=== PATIENT | male | born 1940 | race African-American/Black ===

== ENCOUNTER 2017-02-13 20:48 | Inpatient (IN) | payer BC, MEDICARE ==
[~2017-02-13] VITALS: Ht 172.7 cm; Wt 72.6 kg
[~2017-02-13 20:48] MED LIST: ADVAIR 250-501 EACH INH; AMLODIPINE BESY10 MG ORAL; ETHYL CHLORI103.5 ML TOPIC; FOLIC ACID1 MG ORAL; LIPITOR20 MG ORAL; NEXIUM40 MG ORAL; PROAIR HFA8.5 GM INH; RENA-VITE RX T1 EAC1 PO; VITAMIN B-1001 EACH PO
[2017-02-13 21:00] VITALS: BP 138/62
[2017-02-13] MEDS ORDERED: Piperacillin/Tazobactam 3.375 GM in NS 110 ML IVPB ONE (21:15)
[2017-02-13] MEDS ORDERED: Vancomycin 1.5gm/D5W 250ml 250 ML IVPB ONE (21:15)
--- NOTE | 2017-02-13 21:16 | Emergency Room Report ---
History of Present Illness General Chief Complaint: Generalized Weakness Source: Patient Present Illness HPI Is a 76-year-old male with history of hypertension, renal failure on hemodialysis. Hemodialysis days are Saturday, Saturday, and Saturday. He had a recent graft placed on his right upper extremity because of left was clotted. This was done yesterday. He presents with generalize weakness. Is no strength. No vocality. Denies any fever chills denies any nausea vomiting. This occurred this evening. Denies any chest pain. Denies any nausea vomiting. Allergies: Coded Allergies: No Known Allergies (Unverified , 07/05/14) Patient History Past Medical History: see triage record, old chart reviewed, HTN, renal disease , dialysis Past Surgical History: other Pertinent Family History: none Social History: Denies: smoking Immunizations: other Reviewed Nursing Documentation: PMH: Agreed, PSxH: Agreed Nursing Documentation-PMH Hx Cardiac Problems: Yes Hx Hypertension: Yes Hx Pacemaker: Yes Hx Asthma: Yes Hx Cancer: No Hx Dialysis: Yes - ESRD,M-W-F Hx Neurological Problems: No Review of Systems Constitutional: Reports: malaise, weakness Eye: Denies: eye pain, blurred vision ENT: Denies: ear pain, nose congestion, throat swelling Respiratory: Denies: cough, shortness of breath Cardiovascular: Denies: chest pain, palpitations Gastrointestinal: Denies: abdominal pain, diarrhea, nausea, vomiting Musculoskeletal: Denies: back pain, joint pain Skin: Denies: rash Neurological: Denies: headache, numbness Endocrine: Denies: increased thirst, increased urine Hematologic/Lymphatic: Denies: easy bruising All Other Systems: negative except mentioned in HPI Physical Exam Vital Signs Date Time Temp Pulse Resp B/P (MAP) Pulse Ox O2 Delivery O2 Flow Rate FiO2 02/13/17 20:50 101.8 86 18 149/81 97 Room Air vitals with a fever Sp02 EP Interpretation: reviewed, normal General Appearance: well appearing, no apparent distress, alert Head: normocephalic, atraumatic Eyes: bilateral eye PERRL, bilateral eye EOMI ENT: hearing grossly normal, normal pharynx Neck: full range of motion, supple, no meningismus Respiratory: chest non-tender, lungs clear, normal breath sounds Cardiovascular #1: regular rate, rhythm, no murmur Gastrointestinal: normal bowel sounds, non tender, no mass, no organomegaly, no bruit, non-distended Musculoskeletal: back normal, gait/station normal, normal range of motion, other - Right upper arm: Tender to the patient. Warm to the touch. No bruit. Neurologic: alert, oriented x3 Psychiatric: mood/affect normal Skin: warm/dry Procedures Critical Care Time Critical Care Time Critical care is mandated in this patient who presented with sepsis secondary to infection. Patient require my urgent intervention to attenuate the risks of metabolic collapse which may lead to cardiovascular collapse and . Critical care time is 35 minutes excluding any reportable procedure. Critical care time included evaluation, multiple reevaluation, looking at old charts, interpreting laboratory and diagnostic data, discussing case with patient and family and consultants, and charting. Medical Decision Making Diagnostic Impression: Primary Impression: Sepsis Qualified Codes: A41.9 - Sepsis, unspecified organism Additional Impressions: Infection of AV graft for dialysis Anemia Qualified Codes: D64.9 - Anemia, unspecified ER Course Patient presents with sepsis. He is covered with Zosyn and vancomycin. I suspect that his new AV graft is infected. Ultrasound showed that it is patent. No fluid collection. He also has a Shubham catheter on his left chest. This may also be a source for line infection. No evidence of pneumonia , acute abdomen, meningitis name a few. I discussed the case with Dr. Nunez, who admit him before. He wrote orders. patient did not get for full 30 mL per kilo IV fluid bolus for sepsis. The reason for this is because patient is a dialysis patient and does not make urine. I do not want to put him into pulmonary edema. Laboratory Tests Test 02/13/17 21:15 02/13/17 22:00 White Blood Count 10.6 K/UL (4.8-10.8) Red Blood Count 2.60 M/UL (4.70-6.10) L Hemoglobin 9.2 G/DL (14.2-18.0) L Hematocrit 28.3 % (42.0-52.0) L Mean Corpuscular Volume 109 FL (80-99) H Mean Corpuscular Hemoglobin 35.5 PG (27.0-31.0) H Mean Corpuscular Hemoglobin Concent 32.6 G/DL (32.0-36.0) Red Cell Distribution Width 13.2 % (11.6-14.8) Platelet Count 182 K/UL (150-450) Mean Platelet Volume 7.5 FL (6.5-10.1) Neutrophils (%) (Auto) 74.5 % (45.0-75.0) Lymphocytes (%) (Auto) 8.6 % (20.0-45.0) L Monocytes (%) (Auto) 13.0 % (1.0-10.0) H Eosinophils (%) (Auto) 3.2 % (0.0-3.0) H Basophils (%) (Auto) 0.6 % (0.0-2.0) Prothrombin Time 11.1 SEC (9.30-11.50) Prothromb Time International Ratio 1.1 (0.9-1.1) Activated Partial Thromboplast Time 30 SEC (23-33) Sodium Level 139 mEQ/L (135-145) Potassium Level 3.5 mEQ/L (3.4-4.9) Chloride Level 96 mEQ/L (98-107) L Carbon Dioxide Level 22 mEQ/L (20-30) Anion Gap 21 (5-15) H Blood Urea Nitrogen 27 mg/dL (7-23) H Creatinine 8.2 mg/dL (0.7-1.2) H Estimat Glomerular Filtration Rate mL/min (>60) Glucose Level 100 mg/dL (74-106) Calcium Level 8.7 mg/dL (8.6-10.2) Total Bilirubin 0.3 mg/dL (0.0-1.2) Aspartate Amino Transf (AST/SGOT) 15 U/L (5-40) Alanine Aminotransferase (ALT/SGPT) 5 U/L (3-41) Alkaline Phosphatase 66 U/L (40-129) Creatine Kinase MB Pending Troponin I < 0.30 ng/mL (<=0.30) Total Protein 7.3 g/dL (6.6-8.7) Albumin 3.8 g/dL (3.5-5.2) Globulin 3.5 g/dL Albumin/Globulin Ratio 1.0 (1.0-2.7) Lactic Acid Level 2.90 mmol/L (0.66-2.22) H Lab Results Impression labs with elevated lactic acid EKG Diagnostic Results Rate: normal Rhythm: NSR ST Segments: no acute changes Rhythm Strip Diag. Results Rhythm Strip Time: 21:38 EP Interpretation: yes Rate: 82 Rhythm: NSR, no PVC's, no ectopy Chest X-Ray Diagnostic Results Chest X-Ray Diagnostic Results : Chest X-Ray Ordered: Yes # of Views/Limited/Complete: 1 View Indication: Other EP Interpretation: Yes Interpretation: no consolidation, no effusion, no pneumothorax, no acute cardiopulmonary disease Impression: No acute disease Electronically Signed by: Electronically signed by Devyn Panda MD CT/MRI/US Diagnostic Results CT/MRI/US Diagnostic Results : Imaging Test Ordered: Ultrasound right upper extremity Impression negative per laundry supervisor. Last Vital Signs Date Time Temp Pulse Resp B/P (MAP) Pulse Ox O2 Delivery O2 Flow Rate FiO2 02/13/17 20:50 101.8 86 18 149/81 97 Room Air Status: improved Disposition: ADMITTED INPATIENT Condition: Serious DEVYN PANDA M.D. Feb 13, 2017 21:16
[2017-02-13] MEDS ORDERED: Acetaminophen 500mg (ES) tab ORAL ONE (21:30)
[2017-02-13] MEDS ORDERED: Zosyn 3.375gm inj ONE (22:05)
[2017-02-13 22:08] LABS: BASOPHILS % (AUTO) 0.6 % (0.0-2.0); EOSINOPHILS % (AUTO) 3.2 % (0.0-3.0); LYMPHOCYTES % (AUTO) 8.6 % (20.0-45.0); MEAN CORPUSCULAR HEMOGLOBIN 35.5 PG (27.0-31.0); MEAN CORPUSCULAR HGB CONC 32.6 G/DL (32.0-36.0); MEAN CORPUSCULAR VOLUME 109 FL (80-99); MEAN PLATELET VOLUME 7.5 FL (6.5-10.1); NEUTROPHILS % (AUTO) 74.5 % (45.0-75.0); PLATELET COUNT 182 K/UL (150-450); RED CELL DISTRIBUTION WIDTH 13.2 % (11.6-14.8); WHITE BLOOD COUNT 10.6 K/UL (4.8-10.8)
[2017-02-13] MEDS ORDERED: CATAPRES0.1 MG ORAL (22:12)
[2017-02-13] MEDS ORDERED: Miralax 17gm pkt ORAL PRN (22:15)
[2017-02-13] MEDS ORDERED: Albuterol/Ipratropium 3ml neb HHN PRN (22:15)
[2017-02-13 22:20] LABS: INR 1.1 (0.9-1.1); PROTHROMBIN TIME 11.1 SEC (9.30-11.50)
[2017-02-13 22:37] LABS: ALANINE AMINOTRANSFERASE 5 U/L (3-41); ANION GAP 21 (5-15); ASPARTATE AMINO TRANSFERASE 15 U/L (5-40); CALCIUM 8.7 mg/dL (8.6-10.2); CARBON DIOXIDE 22 mEQ/L (20-30); CHLORIDE 96 mEQ/L (98-107); CREATININE 8.2 mg/dL (0.7-1.2); HEMOLYSIS 4; POTASSIUM 3.5 mEQ/L (3.4-4.9); SODIUM 139 mEQ/L (135-145); TOTAL PROTEIN 7.3 g/dL (6.6-8.7); TROPONIN I < 0.30 ng/mL (<=0.30)
[2017-02-13 22:40] LABS: REFLEX LACTIC ACID YES OR NO YES
[2017-02-13] MEDS ORDERED: NS 250 ML IVPB ONE (22:45)
[2017-02-13 22:52] LABS: CKMB 2.2 ng/mL (< 6.7)
[2017-02-13 23:00] VITALS: BP 130/36
[2017-02-14] VITALS: BP 160/84
[2017-02-14] MEDS ORDERED: DiphenhydrAMINE 50mg/ml Inj IVP ONE
[2017-02-14 04:00] VITALS: BP 146/63
[2017-02-14 07:19] LABS: BASOPHILS % (AUTO) 0.6 % (0.0-2.0); EOSINOPHILS % (AUTO) 6.3 % (0.0-3.0); LYMPHOCYTES % (AUTO) 13.7 % (20.0-45.0); MEAN CORPUSCULAR HEMOGLOBIN 35.8 PG (27.0-31.0); MEAN CORPUSCULAR HGB CONC 32.6 G/DL (32.0-36.0); MEAN CORPUSCULAR VOLUME 110 FL (80-99); MEAN PLATELET VOLUME 7.8 FL (6.5-10.1); MONOCYTES % (AUTO) 12.7 % (1.0-10.0); NEUTROPHILS % (AUTO) 66.7 % (45.0-75.0); PLATELET COUNT 161 K/UL (150-450); RED BLOOD COUNT 2.47 M/UL (4.70-6.10); RED CELL DISTRIBUTION WIDTH 13.7 % (11.6-14.8); WHITE BLOOD COUNT 8.9 K/UL (4.8-10.8)
[2017-02-14 07:28] LABS: ANION GAP 17 (5-15); CALCIUM 8.6 mg/dL (8.6-10.2); CARBON DIOXIDE 27 mEQ/L (20-30); CHLORIDE 94 mEQ/L (98-107); HEMOLYSIS 0; PHOSPHORUS 4.6 mg/dL (2.5-4.8); POTASSIUM 3.5 mEQ/L (3.4-4.9); SODIUM 138 mEQ/L (135-145)
[2017-02-14 07:34] LABS: TROPONIN I < 0.30 ng/mL (<=0.30)
[2017-02-14 08:31] VITALS: BP 168/86
[2017-02-14] MEDS: Heparin 5000 units/ml inj SUBQ SCH ×2 (08:32→20:21)
--- NOTE | 2017-02-14 10:46 | Diagnostic Imaging Report ---
Indication: SOB Technique: One view of the chest Comparison: 07/05/2014 Findings: Less optimal inspiration currently. Left chest pacemaker again demonstrated. Interim placement left chest tunneled dialysis catheter. The left costophrenic sulcus is not well demonstrated, atelectasis or pleural fluid in this area not completely excludable. Lungs and pleural spaces are otherwise clear. The heart is borderline enlarged. Surgical clips are seen in the right axilla Impression: Borderline cardiomegaly Minimal atelectasis or pleural fluid at the left lateral lung base not completely excludable. No acute process otherwise
[2017-02-14] MEDS: DiphenhydrAMINE 50mg/ml Inj IVP PRN ×2 (10:55→20:22)
[2017-02-14] MEDS: Norco 10mg/325mg tab ORAL PRN ×2 (10:56→20:22)
[2017-02-14] MEDS ORDERED: Norco 5mg/325mg tab ORAL PRN (11:00)
--- NOTE | 2017-02-14 11:23 | Consultation ---
Consult Note Consult Note asked to eval for dialysis management been [place] 5 years- has left permacath and a new fistula on right arm which was put 2-3 days ago and appears infected Nib Inspector Dr Wu Chief Complaint: Generalized Weakness Source: Patient Is a 76-year-old male with history of hypertension, renal failure on hemodialysis. Hemodialysis days are Saturday, Saturday, and Saturday. He had a recent graft placed on his right upper extremity because of left was clotted. This was done yesterday. He presents with generalize weakness. Is no strength. No vocality. Denies any fever chills denies any nausea vomiting. This occurred this evening. Denies any chest pain. Denies any nausea vomiting. Hx Cardiac Problems: Yes Hx Hypertension: Yes Hx Pacemaker: Yes Hx Asthma: Yes Hx Dialysis: Yes - ESRD,M-W-F interviewed examined data reviewed Assessment/Plan ESRD- Sepsis, source right arm- Anemia- s/p right nephrectomy- Pace maker- HD in am- ID eval Epogen, Iron as needed per orders ALEJANDRO RANKIN Feb 14, 2017 11:23
[2017-02-14 11:39] VITALS: BP 129/65
[2017-02-14 16:00] VITALS: BP 144/75
--- NOTE | 2017-02-14 16:30 | History and Physical ---
History of Present Illness General Date patient seen: Feb 14, 2017 Reason for Hospitalization: Generalized Weakness Present Illness HPI 76-year-old male with history of hypertension, renal failure on hemodialysis ( Saturday, Saturday, and Saturday). With a recent graft placed on his right upper extremity because of left was clotted yesterday. He presents with generalize weakness. Pt was found to be febrile and was thought to have sepsis and is admitted for further work up. Allergies: Coded Allergies: No Known Allergies (Unverified , 07/05/14) Medication History Scheduled Amlodipine Besylate* (Amlodipine Besylate*), 10 MG ORAL DAILY, (Reported) Atorvastatin Calcium* (Lipitor*), 20 MG ORAL BEDTIME, (Reported) Clonidine Hcl* (Catapres*), 0.1 MG ORAL BID, (Reported) Ethyl Chloride (Ethyl Chloride), 1 APPLIC TOPIC 3XW, (Reported) Fluticasone/Salmeterol (Advair 250-50 Diskus), 1 PUFF INH EVERY 12 HOURS, ( Reported) Folic Acid* (Folic Acid*), 1 MG ORAL DAILY, (Reported) Vit B Cmplx 3/Fa/Vit C/Biotin (Arianna-Max Rx Tablet), 1 EACH PO DAILY, (Reported) Vitamin B Complex (Vitamin B-100 Complex), 1 EACH PO DAILY, (Reported) Scheduled PRN Albuterol Sulfate* (Proair Hfa*), 1 PUFF INH Q6H PRN for Shortness of Breath, ( Reported) Esomeprazole Magnesium (Nexium), 40 MG ORAL DAILY PRN for Nausea & Vomiting, ( Reported) Patient History Healthcare decision maker Resuscitation status Full Code Advanced Directive on File No Past Medical/Surgical History Past Medical/Surgical History: (1) Hypertension (2) End-stage renal disease (3) Dialysis AV fistula malfunction Review of Systems Constitutional: Reports: malaise, weakness All Other Systems: negative except mentioned in HPI Physical Exam General Appearance: WD/WN Lines, tubes and drains: peripheral HEENT: normocephalic, anicteric Neck: non-tender, normal alignment Respiratory/Chest: chest wall non-tender, lungs clear Breasts: no masses Cardiovascular/Chest: normal peripheral pulses Abdomen: normal bowel sounds, non tender Genitourinary/Rectal: normal genital exam Extremities: normal range of motion Last 24 Hour Vital Signs Date Time Temp Pulse Resp B/P (MAP) Pulse Ox O2 Delivery O2 Flow Rate FiO2 02/14/17 11:55 97.9 02/14/17 11:39 97.9 78 20 129/65 98 Room Air 02/14/17 08:31 95 168/86 02/14/17 08:31 97.7 95 21 168/86 99 Room Air 02/14/17 08:17 72 16 Room Air 21 02/14/17 04:00 97.5 75 18 146/63 100 Room Air 02/14/17 00:15 79 13 133/38 98 Room Air 02/14/17 00:00 98.0 84 20 160/84 99 Room Air 02/13/17 23:11 97.9 02/13/17 23:00 99.1 79 14 130/36 97 Room Air 02/13/17 21:00 101.8 81 18 138/62 97 Room Air 02/13/17 20:50 101.8 86 18 149/81 97 Room Air Intake and Output 02/14/17 02/15/17 19:00 07:00 Intake Total 320 ml Output Total 0 ml Balance 320 ml Intake Oral 320 ml Output Urine Total 0 ml Laboratory Tests Test 02/13/17 21:15 02/13/17 22:00 02/13/17 23:25 02/14/17 05:50 White Blood Count 10.6 K/UL (4.8-10.8) 8.9 K/UL (4.8-10.8) Red Blood Count 2.60 M/UL (4.70-6.10) L 2.47 M/UL (4.70-6.10) L Hemoglobin 9.2 G/DL (14.2-18.0) L 8.8 G/DL (14.2-18.0) L Hematocrit 28.3 % (42.0-52.0) L 27.1 % (42.0-52.0) L Mean Corpuscular Volume 109 FL (80-99) H 110 FL (80-99) H Mean Corpuscular Hemoglobin 35.5 PG (27.0-31.0) H 35.8 PG (27.0-31.0) H Mean Corpuscular Hemoglobin Concent 32.6 G/DL (32.0-36.0) 32.6 G/DL (32.0-36.0) Red Cell Distribution Width 13.2 % (11.6-14.8) 13.7 % (11.6-14.8) Platelet Count 182 K/UL (150-450) 161 K/UL (150-450) Mean Platelet Volume 7.5 FL (6.5-10.1) 7.8 FL (6.5-10.1) Neutrophils (%) (Auto) 74.5 % (45.0-75.0) 66.7 % (45.0-75.0) Lymphocytes (%) (Auto) 8.6 % (20.0-45.0) L 13.7 % (20.0-45.0) L Monocytes (%) (Auto) 13.0 % (1.0-10.0) H 12.7 % (1.0-10.0) H Eosinophils (%) (Auto) 3.2 % (0.0-3.0) H 6.3 % (0.0-3.0) H Basophils (%) (Auto) 0.6 % (0.0-2.0) 0.6 % (0.0-2.0) Prothrombin Time 11.1 SEC (9.30-11.50) Prothromb Time International Ratio 1.1 (0.9-1.1) Activated Partial Thromboplast Time 30 SEC (23-33) Sodium Level 139 mEQ/L (135-145) 138 mEQ/L (135-145) Potassium Level 3.5 mEQ/L (3.4-4.9) 3.5 mEQ/L (3.4-4.9) Chloride Level 96 mEQ/L (98-107) L 94 mEQ/L (98-107) L Carbon Dioxide Level 22 mEQ/L (20-30) 27 mEQ/L (20-30) Anion Gap 21 (5-15) H 17 (5-15) H Blood Urea Nitrogen 27 mg/dL (7-23) H 31 mg/dL (7-23) H Creatinine 8.2 mg/dL (0.7-1.2) H 9.0 mg/dL (0.7-1.2) H Estimat Glomerular Filtration Rate mL/min (>60) mL/min (>60) Glucose Level 100 mg/dL (74-106) 89 mg/dL (74-106) Calcium Level 8.7 mg/dL (8.6-10.2) 8.6 mg/dL (8.6-10.2) Total Bilirubin 0.3 mg/dL (0.0-1.2) Aspartate Amino Transf (AST/SGOT) 15 U/L (5-40) Alanine Aminotransferase (ALT/SGPT) 5 U/L (3-41) Alkaline Phosphatase 66 U/L (40-129) Creatine Kinase MB 2.2 ng/mL (< 6.7) Troponin I < 0.30 ng/mL (<=0.30) < 0.30 ng/mL (<=0.30) Total Protein 7.3 g/dL (6.6-8.7) Albumin 3.8 g/dL (3.5-5.2) 3.5 g/dL (3.5-5.2) Globulin 3.5 g/dL Albumin/Globulin Ratio 1.0 (1.0-2.7) Lactic Acid Level 2.90 mmol/L (0.66-2.22) H 1.40 mmol/L (0.66-2.22) Phosphorus Level 4.6 mg/dL (2.5-4.8) Height (Feet): 5 Height (Inches): 8.00 Weight (Pounds): 160 Medications Current Medications Medications (Trade) Dose Ordered Sig/Hannah Route PRN Reason Start Time Stop Time Status Last Admin Dose Admin Acetaminophen (Tylenol) 650 mg Q4H PRN ORAL Fever 02/13/17 22:15 03/15/17 22:14 Acetaminophen/ Hydrocodone Bitart ([place] 10/325) 1 ea Q4H PRN ORAL Severe Pain (Pain Scale 7-10) 02/14/17 11:00 02/21/17 10:59 02/14/17 10:56 Acetaminophen/ Hydrocodone Bitart ([place] 5/325) 1 tab Q4H PRN ORAL Moderate Pain (Pain Scale 4-6) 02/14/17 11:00 02/21/17 10:59 Albuterol/ Ipratropium (DuoNeb 0.5-3(2.5)mg/3ml) 3 ml Q4H PRN HHN Shortness of Breath 02/13/17 22:15 10/2/17 22:14 Amlodipine Besylate (Norvasc) 10 mg DAILY ORAL 02/14/17 09:00 03/16/17 08:59 02/14/17 08:31 Atorvastatin Calcium (Lipitor) 20 mg BEDTIME ORAL 02/14/17 21:00 03/16/17 20:59 Clonidine HCl (Catapres) 0.1 mg Q6H PRN ORAL SBP>160 02/14/17 11:30 03/16/17 11:29 Dextrose (Dextrose 50%) STAT PRN IV Hypoglycemia 02/13/17 22:15 03/15/17 22:14 Diphenhydramine HCl (Benadryl) 25 mg Q6H PRN IVP Itching 02/14/17 11:00 03/16/17 10:59 02/14/17 10:55 Epoetin Jah (Procrit (for ESRD on dialysis)) 10,000 units SAT-SAT-SAT SUBQ 02/15/17 21:00 03/17/17 20:59 Heparin Sodium (Porcine) (Heparin 5000 units/ml) 5,000 units EVERY 12 HOURS SUBQ 02/14/17 09:00 03/16/17 08:59 02/14/17 08:32 Ondansetron HCl (Zofran) 4 mg Q6H PRN IVP Nausea & Vomiting 02/13/17 22:15 03/15/17 22:14 Pantoprazole (Protonix) 40 mg DAILY ORAL 02/14/17 12:30 03/16/17 12:29 02/14/17 12:48 Polyethylene Glycol (Miralax) 17 gm DAILYPRN PRN ORAL Constipation 02/13/17 22:15 03/15/17 22:14 Temazepam (Restoril) 15 mg HSPRN PRN ORAL Insomnia 02/13/17 22:15 02/20/17 22:14 02/14/17 01:48 Vancomycin HCl (Vanco rx to dose) 1 ea DAILY PRN MISC Per rx protocol 02/13/17 22:30 03/15/17 22:29 Assessment/Plan Problem List: (1) Sepsis ICD Codes: A41.9 - Sepsis, unspecified organism SNOMED: 75754562 Qualifiers: Qualified Codes: A41.9 - Sepsis, unspecified organism (2) Anemia ICD Codes: D64.9 - Anemia, unspecified SNOMED: 107193330 Qualifiers: Qualified Codes: D64.9 - Anemia, unspecified (3) End-stage renal disease ICD Codes: N18.6 - End-stage renal disease SNOMED: 64902696 (4) Infection of AV graft for dialysis ICD Codes: T82.7XXA - Infection and inflammatory reaction due to other cardiac and vascular devices, implants and grafts, initial encounter SNOMED: 776169602 Assessment/Plan leonardo culture IV abx ID and renal to see HD by nephrology SHAHLA CALDERÓN Feb 14, 2017 16:30
[2017-02-14 20:00] VITALS: BP 150/76
[2017-02-14] MEDS: Atorvastatin 20mg tab ORAL SCH (20:18)
--- NOTE | 2017-02-14 20:31 | Consultation ---
Consult Note Consult Note A: Rt arm AV graft site cellulitis ESRD on HD P: cont pt on IV Vanco and Amikacin SYLVESTER ELIZALDE M.D. Feb 14, 2017 20:31
[2017-02-15] VITALS: BP 149/63
[2017-02-15 04:00] VITALS: BP 158/71
[2017-02-15 07:25] LABS: EOSINOPHILS % (AUTO) 8.4 % (0.0-3.0); MEAN CORPUSCULAR HEMOGLOBIN 36.1 PG (27.0-31.0); MEAN CORPUSCULAR HGB CONC 32.8 G/DL (32.0-36.0); MEAN CORPUSCULAR VOLUME 110 FL (80-99); MEAN PLATELET VOLUME 8.7 FL (6.5-10.1); MONOCYTES % (AUTO) 10.4 % (1.0-10.0); NEUTROPHILS % (AUTO) 67.1 % (45.0-75.0); PLATELET COUNT 220 K/UL (150-450); RED BLOOD COUNT 2.66 M/UL (4.70-6.10); RED CELL DISTRIBUTION WIDTH 13.3 % (11.6-14.8); WHITE BLOOD COUNT 7.8 K/UL (4.8-10.8)
[2017-02-15 07:32] LABS: HEMOLYSIS 0; IRON 28 ug/dL (59-158); TOTAL IRON BINDING CAPACITY 205 ug/dL (250-400)
[2017-02-15 07:39] LABS: TROPONIN I < 0.30 ng/mL (<=0.30)
[2017-02-15 07:44] LABS: FERRITIN 560 ng/mL (10-230)
[2017-02-15 07:45] LABS: HEMOGLOBIN A1C 4.8 % (< 6.0)
[2017-02-15 07:48] LABS: ALANINE AMINOTRANSFERASE 5 U/L (3-41); ALBUMIN/GLOBULIN RATIO 1.2 (1.0-2.7); ANION GAP 19 (5-15); ASPARTATE AMINO TRANSFERASE 16 U/L (5-40); CARBON DIOXIDE 25 mEQ/L (20-30); CHLORIDE 94 mEQ/L (98-107); CHOLESTEROL 175 mg/dL (< 200); CHOLESTEROL/HDL RATIO 4.5 (3.3-4.4); CREATININE 11.7 mg/dL (0.7-1.2); CRP QUANT 12.3 mg/dL (< 0.5); LDL CHOLESTEROL CALC 112 mg/dL (60-99); PHOSPHORUS 5.8 mg/dL (2.5-4.8); POTASSIUM 3.9 mEQ/L (3.4-4.9); SODIUM 138 mEQ/L (135-145); URIC ACID 5.5 mg/dL (3.0-7.5)
[2017-02-15 08:00] VITALS: BP 144/54
[2017-02-15] MEDS: Norco 10mg/325mg tab ORAL PRN ×2 (08:25→21:41)
[2017-02-15] MEDS: Heparin 5000 units/ml inj SUBQ SCH ×2 (08:32→21:39)
--- NOTE | 2017-02-15 09:56 | General Progress Note ---
Assessment/Plan Assessment/Plan ESRD- Sepsis, source right arm- Anemia- s/p right nephrectomy- Pace maker- HD today- one dose venofer- start renvela ID eval Epogen, per orders per consultants Subjective ROS Limited/Unobtainable: No Allergies: Coded Allergies: No Known Allergies (Unverified , 07/05/14) Objective Last 24 Hour Vital Signs Date Time Temp Pulse Resp B/P (MAP) Pulse Ox O2 Delivery O2 Flow Rate FiO2 02/15/17 09:44 97.8 02/15/17 08:36 81 145/75 02/15/17 08:00 97.5 80 19 144/54 97 Room Air 02/15/17 07:30 80 18 Room Air 21 02/15/17 04:00 97.8 84 19 158/71 100 Room Air 02/15/17 00:00 97.4 88 18 149/63 94 Room Air 02/14/17 20:00 97.8 86 18 150/76 96 Room Air 02/14/17 19:31 82 18 Room Air 02/14/17 16:00 98.1 83 17 144/75 97 Room Air 02/14/17 11:39 97.9 78 20 129/65 98 Room Air Intake and Output 02/15/17 02/16/17 19:00 07:00 Intake Total 120 ml Balance 120 ml Intake Oral 120 ml Laboratory Tests 02/15/17 05:25: White Blood Count 7.8, Red Blood Count 2.66L, Hemoglobin 9.6L, Hematocrit 29.3L , Mean Corpuscular Volume 110H, Mean Corpuscular Hemoglobin 36.1H, Mean Corpuscular Hemoglobin Concent 32.8, Red Cell Distribution Width 13.3, Platelet Count 220, Mean Platelet Volume 8.7, Neutrophils (%) (Auto) 67.1, Lymphocytes (% ) (Auto) 13.0L, Monocytes (%) (Auto) 10.4H, Eosinophils (%) (Auto) 8.4H, Basophils (%) (Auto) 1.0, Sodium Level 138, Potassium Level 3.9, Chloride Level 94L, Carbon Dioxide Level 25, Anion Gap 19H, Blood Urea Nitrogen 41H, Creatinine 11.7H, Estimat Glomerular Filtration Rate , Glucose Level 85, Hemoglobin A1c 4.8, Uric Acid 5.5, Calcium Level 9.0, Phosphorus Level 5.8H, Magnesium Level 2.0, Iron Level 28L, Total Iron Binding Capacity 205L, Percent Iron Saturation 14L, Unsaturated Iron Binding 177, Ferritin 560H, Total Bilirubin 0.3, Gamma Glutamyl Transpeptidase 19, Aspartate Amino Transf (AST/ SGOT) 16, Alanine Aminotransferase (ALT/SGPT) 5, Alkaline Phosphatase 67, Troponin I < 0.30, C-Reactive Protein, Quantitative 12.3H, Pro-B-Type Natriuretic Peptide > 62091P, Total Protein 7.0, Albumin 3.9, Globulin 3.1, Albumin/Globulin Ratio 1.2, Triglycerides Level 119, Cholesterol Level 175, LDL Cholesterol 112H, HDL Cholesterol 39, Cholesterol/HDL Ratio 4.5H, Vitamin B12 Level 1075H, Folate [Pending], Thyroid Stimulating Hormone (TSH) 0.480 Height (Feet): 5 Height (Inches): 8.00 Weight (Pounds): 160 General Appearance: other - feels better Cardiovascular: normal rate Respiratory/Chest: lungs clear Abdomen: soft ALEJANDRO RANKIN Feb 15, 2017 09:55
[2017-02-15 12:00] VITALS: BP 147/66
[2017-02-15] MEDS ORDERED: Iron Sucrose 200 MG in NS 110 ML IV ONE ×2 (12:00→21:00)
[2017-02-15] MEDS ORDERED: Amikacin Rx to dose MISC PRN ×2 (12:00→16:45)
--- NOTE | 2017-02-15 12:13 | Diagnostic Imaging Report ---
APPROVED REPORT CPT Code: 03857 Present Symptoms Comments: R/O DVT Hx of recent AV shunt placement. Comments Technically difficult and limited study due to multiple bandages. RIGHT UPPER EXTREMITY: Venous imaging reveals patency of the internal jugular, subclavian, axillary and brachial veins. Doppler indicates normal spontaneous flow within these venous segments. NOTE: Imaging reveals patency of the dialysis access shunt at the upper right arm level.
[2017-02-15] MEDS: DiphenhydrAMINE 50mg/ml Inj IVP PRN ×2 (12:14→21:41)
[2017-02-15 16:00] VITALS: BP 158/87
--- NOTE | 2017-02-15 18:29 | Pulmonology Progress Note ---
Assessment/Plan Problems: (1) Sepsis (2) Anemia (3) End-stage renal disease (4) Infection of AV graft for dialysis Assessment/Plan continue abx check cultures HD by nephrology Subjective ROS Limited/Unobtainable: No Constitutional: Reports: no symptoms HEENT: Repors: no symptoms Respiratory: Reports: no symptoms Allergies: Coded Allergies: No Known Allergies (Unverified , 07/05/14) Objective Last 24 Hour Vital Signs Date Time Temp Pulse Resp B/P (MAP) Pulse Ox O2 Delivery O2 Flow Rate FiO2 02/15/17 17:49 Room Air 21 02/15/17 16:00 97.8 76 18 158/87 93 Room Air 02/15/17 15:35 Room Air 02/15/17 12:00 97.0 81 19 147/66 94 Room Air 02/15/17 11:58 175/101 02/15/17 09:44 97.8 02/15/17 08:36 81 145/75 02/15/17 08:00 97.5 80 19 144/54 97 Room Air 02/15/17 07:30 80 18 Room Air 21 02/15/17 04:00 97.8 84 19 158/71 100 Room Air 02/15/17 00:00 97.4 88 18 149/63 94 Room Air 02/14/17 20:00 97.8 86 18 150/76 96 Room Air 02/14/17 19:31 82 18 Room Air Intake and Output 02/15/17 02/16/17 19:00 07:00 Intake Total 360 ml Balance 360 ml Intake Oral 360 ml # Bowel Movements 1 General Appearance: WD/WN HEENT: normocephalic, atraumatic Respiratory/Chest: chest wall non-tender, lungs clear Cardiovascular: normal peripheral pulses, normal rate Abdomen: normal bowel sounds, soft, non tender Extremities: no cyanosis Skin: no lesions, no ulcers Neurologic/Psychiatric: abnormal gait Lymphatic: no neck adenopathy Microbiology Date/Time Source Procedure Growth Status 02/13/17 21:30 Blood Blood Culture - Preliminary NO GROWTH AFTER 24 HOURS Resulted 02/13/17 21:15 Blood Blood Culture - Preliminary NO GROWTH AFTER 24 HOURS Resulted Laboratory Tests 02/15/17 05:25: White Blood Count 7.8, Red Blood Count 2.66L, Hemoglobin 9.6L, Hematocrit 29.3L , Mean Corpuscular Volume 110H, Mean Corpuscular Hemoglobin 36.1H, Mean Corpuscular Hemoglobin Concent 32.8, Red Cell Distribution Width 13.3, Platelet Count 220, Mean Platelet Volume 8.7, Neutrophils (%) (Auto) 67.1, Lymphocytes (% ) (Auto) 13.0L, Monocytes (%) (Auto) 10.4H, Eosinophils (%) (Auto) 8.4H, Basophils (%) (Auto) 1.0, Sodium Level 138, Potassium Level 3.9, Chloride Level 94L, Carbon Dioxide Level 25, Anion Gap 19H, Blood Urea Nitrogen 41H, Creatinine 11.7H, Estimat Glomerular Filtration Rate , Glucose Level 85, Hemoglobin A1c 4.8, Uric Acid 5.5, Calcium Level 9.0, Phosphorus Level 5.8H, Magnesium Level 2.0, Iron Level 28L, Total Iron Binding Capacity 205L, Percent Iron Saturation 14L, Unsaturated Iron Binding 177, Ferritin 560H, Total Bilirubin 0.3, Gamma Glutamyl Transpeptidase 19, Aspartate Amino Transf (AST/ SGOT) 16, Alanine Aminotransferase (ALT/SGPT) 5, Alkaline Phosphatase 67, Troponin I < 0.30, C-Reactive Protein, Quantitative 12.3H, Pro-B-Type Natriuretic Peptide > 62160P, Total Protein 7.0, Albumin 3.9, Globulin 3.1, Albumin/Globulin Ratio 1.2, Triglycerides Level 119, Cholesterol Level 175, LDL Cholesterol 112H, HDL Cholesterol 39, Cholesterol/HDL Ratio 4.5H, Vitamin B12 Level 1075H, Folate [Pending], Thyroid Stimulating Hormone (TSH) 0.480 Current Medications Medications (Trade) Dose Ordered Sig/Hannah Route PRN Reason Start Time Stop Time Status Last Admin Dose Admin Acetaminophen (Tylenol) 650 mg Q4H PRN ORAL Fever 02/13/17 22:15 03/15/17 22:14 Acetaminophen/ Hydrocodone Bitart ([place] 10/325) 1 ea Q4H PRN ORAL Severe Pain (Pain Scale 7-10) 02/14/17 11:00 02/21/17 10:59 02/15/17 08:25 Acetaminophen/ Hydrocodone Bitart ([place] 5/325) 1 tab Q4H PRN ORAL Moderate Pain (Pain Scale 4-6) 02/14/17 11:00 02/21/17 10:59 Albuterol/ Ipratropium (DuoNeb 0.5-3(2.5)mg/3ml) 3 ml Q4H PRN HHN Shortness of Breath 02/13/17 22:15 02/18/17 22:14 Amikacin Protocol (Amikacin pharmacy to dose) 1 ea DAILY PRN MISC Per rx protocol 02/15/17 16:45 03/17/17 11:59 Amikacin Sulfate 250 mg/Sodium Chloride 56 ml @ 112 mls/hr ONCE ONCE IV 02/15/17 21:00 02/15/17 21:29 Amlodipine Besylate (Norvasc) 10 mg DAILY ORAL 02/14/17 09:00 03/16/17 08:59 02/15/17 08:36 Atorvastatin Calcium (Lipitor) 20 mg BEDTIME ORAL 02/14/17 21:00 03/16/17 20:59 02/14/17 20:18 Clonidine HCl (Catapres) 0.1 mg Q6H PRN ORAL SBP>160 02/14/17 11:30 03/16/17 11:29 02/15/17 11:58 Dextrose (Dextrose 50%) STAT PRN IV Hypoglycemia 02/13/17 22:15 03/15/17 22:14 Diphenhydramine HCl (Benadryl) 25 mg Q6H PRN IVP Itching 02/14/17 11:00 03/16/17 10:59 02/15/17 12:14 Epoetin Jah (Procrit (for ESRD on dialysis)) 10,000 units SAT-SAT-SAT SUBQ 02/15/17 21:00 03/17/17 20:59 Heparin Sodium (Porcine) (Heparin 5000 units/ml) 5,000 units EVERY 12 HOURS SUBQ 02/14/17 09:00 03/16/17 08:59 02/15/17 08:32 Iron Sucrose 200 mg/Sodium Chloride 120 ml @ 240 mls/hr ONCE ONCE IV 02/15/17 21:00 02/15/17 21:29 Ondansetron HCl (Zofran) 4 mg Q6H PRN IVP Nausea & Vomiting 02/13/17 22:15 03/15/17 22:14 Pantoprazole (Protonix) 40 mg DAILY ORAL 02/14/17 12:30 03/16/17 12:29 02/15/17 08:26 Polyethylene Glycol (Miralax) 17 gm DAILYPRN PRN ORAL Constipation 02/13/17 22:15 03/15/17 22:14 Sevelamer Carbonate (Renvela) 800 mg TIAC ORAL 02/15/17 11:30 03/17/17 11:29 02/15/17 17:30 Temazepam (Restoril) 15 mg HSPRN PRN ORAL Insomnia 02/13/17 22:15 02/20/17 22:14 02/14/17 01:48 Vancomycin HCl (Vanco rx to dose) 1 ea DAILY PRN MISC Per rx protocol 02/13/17 22:30 03/15/17 22:29 SHAHLA CALDERÓN Feb 15, 2017 18:29
[2017-02-15 20:00] VITALS: BP 151/79
[2017-02-15] MEDS ORDERED: Epogen (for ESRD on dialysis) SUBQ SCH (21:00)
[2017-02-15] MEDS ORDERED: Amikacin 250 MG in NS 55 ML IV ONE (21:00)
[2017-02-15] MEDS: Atorvastatin 20mg tab ORAL SCH (21:39)
[2017-02-16 00:26] VITALS: BP 162/68
[2017-02-16 01:38] VITALS: BP 145/61
[2017-02-16 04:09] VITALS: BP 127/59
--- NOTE | 2017-02-16 05:15 | Consultation ---
DATE OF CONSULTATION: 02/16/2017 INFECTIOUS DISEASES CONSULTATION CONSULTING PHYSICIAN: Leonard Pierce M.D. REFERRING PHYSICIAN: Indira Nunez M.D. Reason For Consultation: Evaluation of the patient for possible AV site infection, cellulitis of right upper extremity, antibiotic management. History Of Present Illness: The patient is a 76-year-old male with multiple medical problems, who underwent AV graft placement. Three days ago, subsequent to that, the patient developed erythema and swelling of the arm. The patient was admitted with impression of surgical site cellulitis and wound infection. An Infectious Disease consultation has been requested for further evaluation of the patient and antibiotic management. PAST MEDICAL HISTORY: 1. End-stage renal disease, on hemodialysis. 2. History of pacemaker placement. 3. Hyperlipidemia. 4. Hypertension. 5. Asthma. 6. GERD. 7. Gout. 8. Anemia. MEDICATIONS: IV vancomycin. ALLERGIES: No known drug allergies. SOCIAL HISTORY: Negative for alcohol or drug abuse. FAMILY HISTORY: Noncontributing. PHYSICAL EXAMINATION: Vital Signs: Temperature 97 degrees, blood pressure 151/79, pulse 86, respiratory rate 18, and T-max 101.8 degrees. HEENT: No pale conjunctivae. No icterus. NECK: No lymphadenopathy. CHEST: Clear. HEART: S1 and S2. ABDOMEN: Soft and nontender. Extremities: The patient's right upper extremity has AV graft, indurated, tender, and dark in discoloration, suggestive of cellulitis. NEUROLOGIC: Awake and alert. Laboratory and diagnostic Data: Labs, white cells 7.8, hemoglobin 9.6, and platelets 220,000. BUN 41, creatinine 11.7. ALT, AST, and alkaline phosphatase unremarkable. Blood culture is pending. Venous mapping of the AV graft site shows patency of the site. ASSESSMENT: 1. The patient is a 76-year-old male with arteriovenous graft site infection/cellulitis. 2. Fever. 3. Rule out bacteremia. PLAN: 1. We will continue the patient on IV vancomycin and amikacin. 2. Monitor CBC. 3. Monitor BMP. 4. Monitor blood culture. 5. Dialysis per Nephrology. 6. Based on the patient's clinical course and laboratories, we will do further recommendations. Thank you, Dr. Nunez, for allowing me to participate in the care of this patient. I will follow the patient with you during this hospitalization. Leonard Pierce M.D. DR: Oseas JOB#: [id number] CC:
[2017-02-16] MEDS: DiphenhydrAMINE 50mg/ml Inj IVP PRN (05:16)
[2017-02-16 08:00] VITALS: BP 140/63
--- NOTE | 2017-02-16 09:16 | General Progress Note ---
Assessment/Plan Status: stable Assessment/Plan ESRD- Sepsis, source right arm- Anemia- s/p right nephrectomy- Pace maker- HD next 02/18 one dose venofer- on renvela ID eval Epogen, per orders per consultants Subjective ROS Limited/Unobtainable: No Constitutional: Reports: malaise Allergies: Coded Allergies: No Known Allergies (Unverified , 07/05/14) Objective Last 24 Hour Vital Signs Date Time Temp Pulse Resp B/P (MAP) Pulse Ox O2 Delivery O2 Flow Rate FiO2 02/16/17 08:00 97.8 79 18 140/63 96 Room Air 02/16/17 04:09 97.6 80 20 127/59 100 Room Air 02/16/17 01:38 80 145/61 02/16/17 00:35 162/68 02/16/17 00:26 97.7 84 19 162/68 97 Room Air 02/15/17 22:40 97.0 02/15/17 20:47 81 18 Room Air 21 02/15/17 20:00 97.0 95 20 151/79 96 Room Air 02/15/17 18:49 Room Air 02/15/17 17:49 Room Air 21 02/15/17 16:00 97.8 76 18 158/87 93 Room Air 02/15/17 15:35 Room Air 02/15/17 12:00 97.0 81 19 147/66 94 Room Air 02/15/17 11:58 175/101 Intake and Output 02/16/17 02/17/17 19:00 07:00 Intake Total 240 ml Balance 240 ml Intake Oral 240 ml Laboratory Tests 02/16/17 08:05: Random Vancomycin Level [Pending] Height (Feet): 5 Height (Inches): 8.00 Weight (Pounds): 160 General Appearance: no apparent distress Objective right arm less tender ALEJANDRO RANKIN Feb 16, 2017 09:16
[2017-02-16] MEDS: Norco 10mg/325mg tab ORAL PRN (09:25)
[2017-02-16] MEDS: Heparin 5000 units/ml inj SUBQ SCH (09:31)
--- NOTE | 2017-02-16 10:19 | Infectious Diseases Prog Note ---
Assessment/Plan Assessment/Plan ASSESSMENT: The patient is a 76-year-old male with arteriovenous graft site infection/cellulitis Fever, SP Rule out bacteremia. End-stage renal disease, on hemodialysis. History of pacemaker placement. Hyperlipidemia. Hypertension. Asthma. GERD. Gout. Anemia. PLAN: continue the patient on IV vancomycin and amikacin , ok to DC with cont pt with cont of AB RX ( Via HD ) Monitor CBC. Monitor BMP. Monitor blood culture. Dialysis per Nephrology. Subjective Constitutional: Denies: no symptoms, fever, chills, fatigue, anorexia, drenching sweats, other Allergies: Coded Allergies: No Known Allergies (Unverified , 07/05/14) Objective Vital Signs Last 24 Hour Vital Signs Date Time Temp Pulse Resp B/P (MAP) Pulse Ox O2 Delivery O2 Flow Rate FiO2 02/16/17 09:25 79 140/63 02/16/17 08:00 97.8 79 18 140/63 96 Room Air 02/16/17 04:09 97.6 80 20 127/59 100 Room Air 02/16/17 01:38 80 145/61 02/16/17 00:35 162/68 02/16/17 00:26 97.7 84 19 162/68 97 Room Air 02/15/17 22:40 97.0 02/15/17 20:47 81 18 Room Air 21 02/15/17 20:00 97.0 95 20 151/79 96 Room Air 02/15/17 18:49 Room Air 02/15/17 17:49 Room Air 21 02/15/17 16:00 97.8 76 18 158/87 93 Room Air 02/15/17 15:35 Room Air 02/15/17 12:00 97.0 81 19 147/66 94 Room Air 02/15/17 11:58 175/101 Height (Feet): 5 Height (Inches): 8.00 Weight (Pounds): 160 HEENT: mucous membranes moist Respiratory/Chest: lungs clear Cardiovascular: regularly irregular Abdomen: non distended Microbiology Date/Time Source Procedure Growth Status 02/13/17 21:30 Blood Blood Culture - Preliminary NO GROWTH AFTER 24 HOURS Resulted 02/13/17 21:15 Blood Blood Culture - Preliminary NO GROWTH AFTER 24 HOURS Resulted 02/13/17 23:05 Rectum VRE Culture - Final NO VANCOMYCIN RESISTANT ENTEROCOCCUS ... Complete Laboratory Tests Test 02/16/17 08:05 Random Vancomycin Level 14.7 ug/mL Current Medications Medications (Trade) Dose Ordered Sig/Hannah Route PRN Reason Start Time Stop Time Status Last Admin Dose Admin Acetaminophen (Tylenol) 650 mg Q4H PRN ORAL Fever 02/13/17 22:15 03/15/17 22:14 Acetaminophen/ Hydrocodone Bitart ([place] 10/325) 1 ea Q4H PRN ORAL Severe Pain (Pain Scale 7-10) 02/14/17 11:00 02/21/17 10:59 02/16/17 09:25 Acetaminophen/ Hydrocodone Bitart ([place] 5/325) 1 tab Q4H PRN ORAL Moderate Pain (Pain Scale 4-6) 02/14/17 11:00 02/21/17 10:59 Albuterol/ Ipratropium (DuoNeb 0.5-3(2.5)mg/3ml) 3 ml Q4H PRN HHN Shortness of Breath 02/13/17 22:15 02/18/17 22:14 Amikacin Protocol (Amikacin pharmacy to dose) 1 ea DAILY PRN MISC Per rx protocol 02/15/17 16:45 03/17/17 11:59 Amlodipine Besylate (Norvasc) 10 mg DAILY ORAL 02/14/17 09:00 03/16/17 08:59 02/16/17 09:25 Atorvastatin Calcium (Lipitor) 20 mg BEDTIME ORAL 02/14/17 21:00 03/16/17 20:59 02/15/17 21:39 Clonidine HCl (Catapres) 0.1 mg Q6H PRN ORAL SBP>160 02/14/17 11:30 03/16/17 11:29 02/16/17 00:35 Dextrose (Dextrose 50%) STAT PRN IV Hypoglycemia 02/13/17 22:15 03/15/17 22:14 Diphenhydramine HCl (Benadryl) 25 mg Q6H PRN IVP Itching 02/14/17 11:00 03/16/17 10:59 02/16/17 05:16 Epoetin Jah (Procrit (for ESRD on dialysis)) 10,000 units MON-WED-SAT SUBQ 02/15/17 21:00 03/17/17 20:59 02/15/17 21:40 Heparin Sodium (Porcine) (Heparin 5000 units/ml) 5,000 units EVERY 12 HOURS SUBQ 02/14/17 09:00 03/16/17 08:59 02/16/17 09:31 Ondansetron HCl (Zofran) 4 mg Q6H PRN IVP Nausea & Vomiting 02/13/17 22:15 03/15/17 22:14 Pantoprazole (Protonix) 40 mg DAILY ORAL 02/14/17 12:30 03/16/17 12:29 02/16/17 09:26 Polyethylene Glycol (Miralax) 17 gm DAILYPRN PRN ORAL Constipation 02/13/17 22:15 03/15/17 22:14 Sevelamer Carbonate (Renvela) 800 mg TIAC ORAL 02/15/17 11:30 03/17/17 11:29 02/16/17 06:54 Temazepam (Restoril) 15 mg HSPRN PRN ORAL Insomnia 02/13/17 22:15 02/20/17 22:14 02/14/17 01:48 Vancomycin HCl (Vanco rx to dose) 1 ea DAILY PRN MISC Per rx protocol 02/13/17 22:30 03/15/17 22:29 SYLVESTER ELIZALDE M.D. Feb 16, 2017 10:19
--- NOTE | 2017-02-16 10:36 | Cardiology Report ---
APPROVED REPORT EXAM: Two-dimensional and M-mode echocardiogram with Doppler and color Doppler. INDICATION Left ventricular function M-Mode DIMENSIONS IVSd2.1 (0.7-1.1cm)Left Atrium (MM)4.7 (1.6-4.0cm) LVDd5.8 (3.5-5.6cm)Aortic Root2.9 (2.0-3.7cm) PWd1.4 (0.7-1.1cm)Aortic Cusp Exc.1.4 (1.5-2.0cm) LVDs4.1 (2.5-4.0cm) PWs1.4 cm Technically difficult study due to poor acoustical windows. Normal left ventricular chamber size, systolic function and wall motion. Left ventricular ejection fraction estimated to be 55-60%. Mild left ventricular hypertrophy. No evidence of pericardial or pleural effusion. Right cardiac chamber sizes are within normal limits. Mild left atrial enlargement by 2D. Calcified aortic valve sclerosis with adequate reduced cusp excursion. Thickened mitral valve leaflets with normal excursion. Mild mitral annulus and aortic root calcification. Pulmonic valve is well visualized. Normal tricuspid valve structure. IVC is normal in size and collapsible with respiration. A color flow and spectral Doppler study was performed and revealed: No aortic regurgitation. Peak aortic valve gradient of 24mmHg and a mean of 14 mmHg. Trace mitral regurgitation. Mitral diastolic velocities suggest reduced left ventricular relaxation c/w diastolic dysfunction grade 1. Mild tricuspid regurgitation. Tricuspid systolic velocities suggests peak right ventricular systolic pressure of 35mmHg Consistent with mild pulmonary hypertension. Pulmonic regurgitation present.
[2017-02-16 12:07] VITALS: BP 179/87
[2017-02-16] MEDS ORDERED: NS 275ml ONE (14:58)
[2017-02-16] MEDS ORDERED: Tubing IV Secondary IV ONE (14:58)
--- NOTE | 2017-02-16 15:27 | Pulmonology Progress Note ---
Assessment/Plan Problems: (1) Sepsis (2) Anemia (3) End-stage renal disease (4) Infection of AV graft for dialysis Assessment/Plan continue abx check cultures HD by nephrology dc home with abx at home f/u with primary Subjective ROS Limited/Unobtainable: No Constitutional: Reports: no symptoms HEENT: Repors: no symptoms Respiratory: Reports: no symptoms Allergies: Coded Allergies: No Known Allergies (Unverified , 07/05/14) Objective Last 24 Hour Vital Signs Date Time Temp Pulse Resp B/P (MAP) Pulse Ox O2 Delivery O2 Flow Rate FiO2 02/16/17 12:07 98.3 77 21 179/87 97 Room Air 77 02/16/17 11:20 179/87 02/16/17 10:40 97.8 02/16/17 09:25 79 140/63 02/16/17 08:00 97.8 79 18 140/63 96 Room Air 02/16/17 04:09 97.6 80 20 127/59 100 Room Air 02/16/17 01:38 80 145/61 02/16/17 00:35 162/68 02/16/17 00:26 97.7 84 19 162/68 97 Room Air 02/15/17 20:47 81 18 Room Air 21 02/15/17 20:00 97.0 95 20 151/79 96 Room Air 02/15/17 18:49 Room Air 02/15/17 17:49 Room Air 21 02/15/17 16:00 97.8 76 18 158/87 93 Room Air 02/15/17 15:35 Room Air Intake and Output 02/16/17 02/17/17 19:00 07:00 Intake Total 240 ml Balance 240 ml Intake Oral 240 ml General Appearance: WD/WN HEENT: normocephalic, atraumatic Respiratory/Chest: chest wall non-tender, lungs clear Cardiovascular: normal peripheral pulses, normal rate Abdomen: normal bowel sounds, soft, non tender Genitourinary: normal external genitalia Extremities: no cyanosis Skin: no lesions, no ulcers Neurologic/Psychiatric: drum loader and unloader II-XII grossly normal Microbiology Date/Time Source Procedure Growth Status 02/13/17 21:30 Blood Blood Culture - Preliminary NO GROWTH AFTER 48 HOURS Resulted 02/13/17 21:15 Blood Blood Culture - Preliminary NO GROWTH AFTER 48 HOURS Resulted 02/13/17 23:05 Nasal Nares MRSA Culture - Final NO METHICILLIN RESISTANT STAPH AUREUS... Complete 02/13/17 23:05 Rectum VRE Culture - Final NO VANCOMYCIN RESISTANT ENTEROCOCCUS ... Complete Laboratory Tests 02/16/17 08:05: Random Vancomycin Level 14.7 SHAHLA CALDERÓN Feb 16, 2017 15:27
--- NOTE | 2017-02-18 15:14 | Discharge Summary ---
Discharge Summary Hospital Course Date of Admission Feb 13, 2017 at 23:11 Date of Discharge Feb 16, 2017 at 14:59 Admitting Diagnosis SEPSIS RT ARM GRAFT INFECTION HPI Ismael Hobbs is a 76 year old male who was admitted on Feb 13, 2017 at 23: 11 for Sepsis Right Arm Graft Infection Hospital Course dc summary #[id number] Discharge Medications Continued Medications: Albuterol Sulfate* (Proair Hfa*) 8.5 Gm Hfa.aer.ad 1 PUFF INH Q6H PRN for Shortness of Breath, GM 0 Refills Amlodipine Besylate* (Amlodipine Besylate*) 10 Mg Tablet 10 MG ORAL DAILY, TAB Atorvastatin Calcium* (Lipitor*) 20 Mg Tablet 20 MG ORAL BEDTIME, TAB Clonidine Hcl* (Catapres*) 0.1 Mg Tablet 0.1 MG ORAL BID, TAB Esomeprazole Magnesium (Nexium) 40 Mg Capsule.dr 40 MG ORAL DAILY PRN for Nausea & Vomiting, CAP Ethyl Chloride (Ethyl Chloride) 103.5 Ml [place] 1 APPLIC TOPIC 3XW, SPRAY Fluticasone/Salmeterol (Advair 250-50 Diskus) 1 Each Disk.w.dev 1 PUFF INH EVERY 12 HOURS, EA Folic Acid* (Folic Acid*) 1 Mg Tablet 1 MG ORAL DAILY, TAB Vit B Cmplx 3/Fa/Vit C/Biotin (Arianna-Max Rx Tablet) 1 Each Tablet 1 EACH PO DAILY, TAB Vitamin B Complex (Vitamin B-100 Complex) 1 Each Tablet 1 EACH PO DAILY, TAB Discharge Condition Upon Discharge: stable Discharge Disposition Patient was discharged to Home () Discharge Diagnoses: Discharge Instructions Discharge Instructions Special Instructions I have been assigned to complete a D/C Summary on this account. I was not involved in the patient management Renee Mckeon NP (Vanchtein) Feb 18, 2017 15:14
--- NOTE | 2017-02-19 03:00 | Discharge Summary 2 SIG ---
DATE OF ADMISSION: 02/13/2017 DATE OF DISCHARGE: 02/16/2017 Reason For Admission: 76-year-old male with history of end-stage renal disease, on hemodialysis, history of right nephrectomy, hypertension, and recently placed AV graft in the right upper extremity. The patient presented with generalized weakness and subjective fever. No chest pain. No shortness of breath. No nausea. No vomiting. The patient was febrile- 101.8 in the emergency department. Lactic acid was elevated - 2.9. No leukocytosis. WBC -10.6. Chest x-ray revealed no acute cardiopulmonary pathology. Physical exam was consistent with tenderness on palpation on the site of the intravenous graft along with warmth to touch and no bruit heard. The patient also had a Shubham on the left chest. There was no evidence of acute abdomen or meningitis, - likely graft was a source of infection. Hemoglobin -9.2 and hematocrit -28.3. The patient was started on empiric antibiotics and admitted for further management. ADMITTING DIAGNOSES: 1. Possible sepsis. 2. Possible bacteremia. 3. Intravenous graft infection/cellulitis. 4. Anemia. 5. Pacemaker. 6. History of right nephrectomy. 7. End-stage renal disease, on hemodialysis. Hospital Stay: The patient was admitted. Nephrology and ID consults were requested. The patient was on empiric antibiotics. Blood cultures were negative. ID recommended to continue IV antibiotic with dialysis, which was communicated by ID specialist to outpatient hemodialysis. Fever resolved. No leukocytosis. Digital Photo Printer followed and arranged hemodialysis while in the hospital. Renal parameters and electrolytes were closely monitored. Venous duplex of right upper extremity was negative for acute DVT. Doppler study revealed spontaneous flow within various segments of internal jugular, subclavian, axillary, and brachial veins and imaging also revealed patency of the dialysis access. Echocardiogram revealed ejection fraction of 55% to 60% and right ventricular systolic pressure of 14. No evidence of vegetation. EKG showed normal sinus rhythm. Electrolytes were stable. Hemoglobin and hematocrit were closely monitored while in the hospital, remained at the baseline. The patient was on Epogen. Anemia workup was consistent with anemia of chronic disease. Elevated ferritin - 560. Stable B12 level. The patient was stable for transfer home and follow up with primary medical doctor. FINAL DIAGNOSES: 1. Sepsis. 2. Intravenous graft infection/cellulitis. 3. Anemia of chronic disease. 4. End-stage renal disease, on hemodialysis. 5. Pacemaker. 6. History of right nephrectomy. DISCHARGE MEDICATIONS: See medication reconciliation list. Discharge Instructions: The patient was discharged home. Follow up with the primary medical doctor and outpatient hemodialysis. Indira Nunez M.D. I have been assigned to dictate discharge summary on this account and I was not involved in the patient's management. Renee GamingConnie wright DR: RACHAEL JOB#: [id number] CC: RUSTAM
--- NOTE | 2017-02-23 02:09 | Cardiology Report ---
APPROVED REPORT EKG Measurement Heart [id number] Normal sinus rhythm with sinus arrhythmia Left axis deviation Incomplete right bundle branch block Minimal voltage criteria for LVH, may be normal variant Cannot rule out Anterior infarct, age undetermined Abnormal ECG
== END 2017-02-16 14:59 | disposition home or self-care (01) | DRG 314 ==
LOC: EDBD 20:48 → EMR 21:25 → EDBEDREQ 22:24 → 4E 23:11
PROC: 5A1D60Z (ICD-10-PCS; principal; 2017-02-14)
DX: T82.7XXA Infection and inflammatory reaction due to other cardiac and vascular devices, implants and grafts, initial encounter (principal); N18.6 End stage renal disease; I12.0 Hypertensive chronic kidney disease with stage 5 chronic kidney disease or end stage renal disease; D63.1 Anemia in chronic kidney disease; L03.113 Cellulitis of right upper limb; Z99.2 Dependence on renal dialysis; Z90.5 Acquired absence of kidney; Z95.0 Presence of cardiac pacemaker; K21.9 Gastro-esophageal reflux disease without esophagitis; E78.5 Hyperlipidemia, unspecified
CPT/HCPCS: 36415; 71010; 80048; 80053; 80061; 80069; 80202; 82553; 82607; 82728; 82746; 82977; 83036; 83540; 83550; 83605; 83735; 83880; 84100; 84443; 84484; 84550; 85025; 85610; 85730; 86140; 87040; 87081; 93005; 93306; 93971; 94664; 99285